=== PATIENT | female | born 1970 | race Caucasian/White ===

== ENCOUNTER 2018-09-09 06:11 | Emergency (ER) | payer BC, OTHER ==
[~2018-09-09] VITALS: Wt 87.3 kg
[~2018-09-09 06:11] MED LIST: ACYC800T PO; DOCO2CRE3 TOP
[2018-09-09 06:14] VITALS: BP 132/60; PULSE 92; RESP 20
[2018-09-09] MEDS ORDERED: DOXY100T20 PO (06:32)
[2018-09-09] MEDS ORDERED: SODI30SP2 NS (06:32)
[2018-09-09] MEDS ORDERED: IBUP-1541 PO (06:32)
--- NOTE | 2018-09-09 06:39 | ERD ---
ER Documentation Chief Complaint Chief Complaint COUGH, BODY ACHES, CONJESTION X'S 10 DAYS HPI 48-year-old female presents for cough, body aches, congestion times 10 days. She notes that she is been having fevers at home. She tried TheraFlu without relief. She also noted that she is having some back pain for the last 1 day due to the cough. She denies any dysuria. She states that she has runny nose and associated sore throat. Denies any past medical history. She does have an allergy to penicillin. Denies chest pain or shortness of breath. Denies abdominal pain, nausea, vomiting. ROS All systems reviewed and are negative except as per history of present illness. Medications Home Meds Active Scripts Ibuprofen* (Ibuprofen*) 400 Mg Tablet, 400 MG PO Q6H PRN for pain/fever > 100.6, #30 TAB Prov:ISACELVIRA 09/09/18 Sodium Chloride (Saline Nasal Slig[place]) 30 Ml [place], 30 ML NS BID PRN for NASAL CONGESTION, #1 BOTTLE Prov:ELVIRA CHAU DO 09/09/18 Doxycycline Hyclate* (Doxycycline Hyclate*) 100 Mg Tablet.dr, 100 MG PO BID for 5 Days, #10 TAB Prov:ELVIRA CHAU DO 09/09/18 Acyclovir* (Acyclovir*) 800 Mg Tablet, 800 MG PO BID for 5 Days, TAB Prov:NANCY BOATENG PA-C 02/05/16 Docosanol (Abreva) 2 Gm Cream.gm., 1 APPLIC TOP 5 TIMES DAILY, #1 TUB Prov:NANCY BOATENG PA-C 02/05/16 PMhx/Soc Hx Alcohol Use: No Hx Substance Use: No Hx Tobacco Use: No Physical Exam Vitals Vital Signs Date Temp Pulse Resp B/P (MAP) Pulse Ox O2 O2 Flow FiO2 Time Delivery Rate 09/09/18 97.5 92 20 132/60 97 06:14 (84) Physical Exam Const: No acute distress Head: Atraumatic, there is frontal and francois-nasal sinus tenderness to palpation Eyes: Normal Conjunctiva ENT: Normal External Ears. Nasal congestion noted, oral mucosa without lesions Neck: Full range of motion. No meningismus. Resp: Clear to auscultation bilaterally Cardio: Regular rate and rhythm, no murmurs, bilateral dorsalis pedis pulses intact Abd: Soft, non tender, non distended. Normal bowel sounds Skin: No petechiae or rashes Back: Mild lower thoracic paravertebral muscle tenderness to palpation Ext: No cyanosis, or edema Neur: Awake and alert, bilateral lower extremity sensation intact Procedures/MDM Medical Decision Making: Differential diagnosis includes but not limited to upper respiratory infection, pneumonia, sepsis, sinusitis. Patient appeared well on physical examination, nontoxic appearing. Lungs were clear to auscultation bilaterally. There is low suspicion for pneumonia, sepsis. Patient did have tenderness palpation of the frontal sinus and perinasal sinuses Given the length of times of symptoms and tenderness palpation of the sinuses patient possibly has a bacterial sinusitis. Patient given prescription for doxycycline due to her penicillin allergy, also given Motrin and nasal saline spray. Patient advised to follow up with PCP in 1-2 days. Patient advised to return to ED for new or worsening symptoms. Patient stable on discharge from the ED. Disclaimer: Inadvertent spelling and grammatical errors are likely due to EHR/dictation software use and do not reflect on the overall quality of patient care. Also, please note that the electronic time recorded on this note does not necessarily reflect the actual time of the patient encounter. Departure Diagnosis: Primary Impression: Sinusitis Sinusitis location: frontal Chronicity: acute Recurrence: not specified as recurrent Qualified Codes: J01.10 - Acute frontal sinusitis, unspecified Condition: Fair Patient Instructions: Sinusitis, Abx Tx Referrals: [facility] YOU HAVE RECEIVED A MEDICAL SCREENING EXAM AND THE RESULTS INDICATE THAT YOU DO NOT HAVE A CONDITION THAT REQUIRES URGENT TREATMENT IN THE EMERGENCY DEPARTMENT. FURTHER EVALUATION AND TREATMENT OF YOUR CONDITION CAN WAIT UNTIL YOU ARE SEEN IN YOUR DOCTORS OFFICE WITHIN THE NEXT 1-2 DAYS. IT IS YOUR RESPONSIBILITY TO MAKE AN APPOINTMENT FOR FOLOW-UP CARE. IF YOU HAVE A PRIMARY DOCTOR --you should call your primary doctor and schedule an appointment IF YOU DO NOT HAVE A PRIMARY DOCTOR YOU CAN CALL OUR PHYSICIAN REFERRAL HOTLINE AT IF YOU CAN NOT AFFORD TO SEE A PHYSICIAN YOU CAN CHOSE FROM THE FOLLOWING [facility] [address] [place] [facility] [address] [facility] [facility] [address] [facility] [address] [facility]. [facility] [address] [facility]. [address] Additional Instructions: Call your primary care doctor TOMORROW for an appointment during the next 1-2 days.See the doctor sooner or return here if your condition worsens before your appointment time. ELVIRA CHAU DO Sep 09, 2018 06:39
== END 2018-09-09 06:35 | disposition home or self-care (01) ==
LOC: FTE 06:11
DX: J01.10 Acute frontal sinusitis, unspecified (principal)
CPT/HCPCS: 99283